=== PATIENT | female | born 1975 | race African-American/Black ===

== ENCOUNTER 2019-01-29 15:07 | Inpatient (IN) | payer MEDICAID ==
[~2019-01-29] VITALS: Ht 160 cm; Wt 118.8 kg
[2019-01-29] MEDS ORDERED: SODIUM CHLORIDE 0.9% 1,000 ML IV ONE ×2 (15:30→18:30)
[2019-01-29] MEDS ORDERED: FENTANYL CITRATE/PF 50MCG/ML 2ML VIAL IV ONE (16:00)
[2019-01-29] MEDS ORDERED: ONDANSETRON HCL 4MG/2ML INJ IV ONE (16:00)
[2019-01-29 16:30] LABS: CHLORIDE 105 mEq/L (98-107)
[2019-01-29 16:31] LABS: BASOPHILS % 0.6 % (0.0-2.0); EOSINOPHILS % 1.2 % (0.0-5.0); HEMATOCRIT. 42.6 % (36.0-48.0); HEMOGLOBIN. 14.4 g/dL (12.0-16.0); LYMPHOCYTES % 26.6 % (20.0-50.0); MEAN CORPUSCULAR HEMOGLOBIN 30.9 pg (28.0-32.0); MEAN CORPUSCULAR VOLUME 91.5 fL (81.0-99.0); MEAN PLATELET VOLUME 11.3 fl (7.4-10.4); MONOCYTES % 11.7 % (2.0-8.0); NEUTROPHILS % 59.9 % (40.0-76.0); PLATELET 189 x1000/uL (130-400); RED BLOOD CELL COUNT 4.65 mill/uL (4.2-5.4); RED CELL DISTRIBUTION WIDTH 14.3 % (11.6-14.6)
[2019-01-29] MEDS ORDERED: KETOROLAC 30MG/ML VIAL IV ONE (17:30)
[2019-01-29 17:56] LABS: CREATINE KINASE 48380 IU/L (26-192)
[2019-01-29] MEDS ORDERED: MORPHINE SULFATE 4 MG/ML CPJ (NOT FOR IM USE) IV ONE (18:30)
[2019-01-29] MEDS ORDERED: CLONIDINE 0.2MG TABLET PO ONE (19:15)
[2019-01-29] MEDS ORDERED: MORPHINE SULFATE 2 MG/ML CPJ (NOT FOR IM USE) IV PRN (19:30)
[2019-01-29] MEDS ORDERED: ONDANSETRON HCL 4MG/2ML INJ IV PRN (19:30)
[2019-01-29] MEDS ORDERED: CLONIDINE 0.1MG TABLET PO PRN (19:30)
[2019-01-29] MEDS ORDERED: HYDRALAZINE 20MG/ML VIAL IV PRN (19:45)
[2019-01-29] MEDS: SODIUM CHLORIDE 0.9% 1,000 ML IV SCH (20:23)
[2019-01-29 21:18] LABS: CLARITY URINE TURBID (CLEAR); COLOR URINE DARK YELLOW (YELLOW); KETONES URINE 1+ (NEGATIVE); LEUKOCYTE ESTERASE URINE 1+ (NEGATIVE); NITRITE URINE NEGATIVE (NEGATIVE); OCCULT BLOOD URINE 3+ (NEGATIVE); PROTEIN URINE 2+ (NEGATIVE); SPECIFIC GRAVITY URINE 1.034 (1.005-1.030)
[2019-01-29 21:29] LABS: *AMPHETAMINES SCREEN URINE NEGATIVE (NEGATIVE); *BARBITURATES SCREEN URINE NEGATIVE (NEGATIVE); *BENZODIAZEPINES SCREEN URINE NEGATIVE (NEGATIVE); METHADONE URINE SCREEN NEGATIVE (NEGATIVE); PHENCYCLIDINE URINE SCREEN NEGATIVE (NEGATIVE)
[2019-01-29 21:30] LABS: *COCAINE SCREEN URINE NEGATIVE (NEGATIVE)
[2019-01-29 21:31] LABS: CANNABINOID URINE SCREEN PRESUMTIVE POSITIVE (NEGATIVE); OPIATES URINE SCREEN PRESUMTIVE POSITIVE (NEGATIVE)
[2019-01-29] MEDS ORDERED: HYDRALAZINE 10 MG in SODIUM CHLORIDE 0.9% 49.5 ML IV PRN (23:00)
[2019-01-30] VITALS (7 sets, daily range): BP systolic 113–153; BP diastolic 73–96
[2019-01-30] MEDS: HYDROCODONE/ACETAMINOPHEN 5/325MG TABLET PO PRN ×2 (01:09→06:40)
[2019-01-30] MEDS: METOPROLOL TARTRATE 50MG TABLET PO SCH ×3 (01:09→20:37)
[2019-01-30] MEDS: AMLODIPINE 5MG TABLET PO SCH ×3 (01:11→20:38)
[2019-01-30 01:20] LABS: CHLORIDE 109 mEq/L (98-107)
[2019-01-30] MEDS ORDERED: LOSA1TAB34 PO (01:36)
[2019-01-30] MEDS ORDERED: HYDR25TA PO (01:36)
[2019-01-30] MEDS: SODIUM CHLORIDE 0.9% 1,000 ML IV SCH ×7 (02:56→20:39)
[2019-01-30 07:19] LABS: BASOPHILS % 0.5 % (0.0-2.0); CHLORIDE 111 mEq/L (98-107); HEMATOCRIT. 38.3 % (36.0-48.0); LYMPHOCYTES % 44.6 % (20.0-50.0); MEAN CORPUSCULAR HEMOGLOBIN 31.1 pg (28.0-32.0); MEAN PLATELET VOLUME 10.4 fl (7.4-10.4); MONOCYTES % 9.5 % (2.0-8.0); NEUTROPHILS % 42.4 % (40.0-76.0); PLATELET 149 x1000/uL (130-400); RED BLOOD CELL COUNT 4.16 mill/uL (4.2-5.4); RED CELL DISTRIBUTION WIDTH 14.2 % (11.6-14.6)
[2019-01-30 08:40] LABS: CREATINE KINASE 44895 IU/L (26-192)
[2019-01-30] MEDS: HYDROCODONE/APAP 7.5/325MG 1 TAB TABLET PO PRN ×2 (10:31→16:07)
[2019-01-30] MEDS ORDERED: CEFTRIAXONE 1 G PREMIX 50 ML IV SCH (12:00)
[2019-01-30] MEDS: ENOXAPARIN 40MG/0.4ML SYR SUBCUT SCH (20:38)
[2019-01-31] VITALS (8 sets, daily range): BP systolic 89–206; BP diastolic 71–108
[2019-01-31] MEDS: HYDROCODONE/APAP 7.5/325MG 1 TAB TABLET PO PRN ×5 (00:20→20:02)
[2019-01-31] MEDS: SODIUM CHLORIDE 0.9% 1,000 ML IV SCH ×5 (01:59→20:00)
[2019-01-31 05:37] LABS: BASOPHILS % 0.8 % (0.0-2.0); EOSINOPHILS % 3.8 % (0.0-5.0); HEMATOCRIT. 37.8 % (36.0-48.0); HEMOGLOBIN. 12.7 g/dL (12.0-16.0); LYMPHOCYTES % 46.7 % (20.0-50.0); MEAN CORPUSCULAR HEMOGLOBIN 31.2 pg (28.0-32.0); MEAN CORPUSCULAR VOLUME 92.7 fL (81.0-99.0); MEAN PLATELET VOLUME 11.5 fl (7.4-10.4); NEUTROPHILS % 39.7 % (40.0-76.0); PLATELET 159 x1000/uL (130-400); RED BLOOD CELL COUNT 4.08 mill/uL (4.2-5.4); RED CELL DISTRIBUTION WIDTH 14.1 % (11.6-14.6)
[2019-01-31 05:56] LABS: CHLORIDE 112 mEq/L (98-107)
[2019-01-31 07:54] LABS: CREATINE KINASE 40366 IU/L (26-192)
[2019-01-31] MEDS: AMLODIPINE 5MG TABLET PO SCH (09:13)
[2019-01-31] MEDS: METOPROLOL TARTRATE 50MG TABLET PO SCH (09:14)
[2019-01-31] MEDS: ENOXAPARIN 40MG/0.4ML SYR SUBCUT SCH (09:14)
[2019-01-31 13:33] LABS: HEPATITIS B SURFACE ANTIGEN NEGATIVE
[2019-01-31 14:03] LABS: HEPATITIS A AB IGM NEGATIVE (NEGATIVE)
[2019-01-31] MEDS: ENOXAPARIN 30MG/0.3ML SYR SUBCUT SCH (20:00)
[2019-01-31] MEDS: METOPROLOL TARTRATE 25MG TABLET PO SCH (20:01)
[2019-01-31] MEDS ORDERED: METOPROLOL TARTRATE 25MG TABLET PO SCH (21:00)
[2019-01-31] MEDS ORDERED: AMLODIPINE 5MG TABLET PO SCH (21:00)
[2019-01-31] MEDS ORDERED: ACETAMINOPHEN 325MG TABLET PO PRN (22:07)
[2019-02-01] VITALS (7 sets, daily range): BP systolic 121–157; BP diastolic 66–97
[2019-02-01] MEDS: SODIUM CHLORIDE 0.9% 1,000 ML IV SCH (03:24)
[2019-02-01 06:56] LABS: BASOPHILS % 0.7 % (0.0-2.0); EOSINOPHILS % 4.8 % (0.0-5.0); HEMATOCRIT. 38.3 % (36.0-48.0); HEMOGLOBIN. 12.8 g/dL (12.0-16.0); LYMPHOCYTES % 39.2 % (20.0-50.0); MEAN CORPUSCULAR HEMOGLOBIN 30.8 pg (28.0-32.0); MEAN CORPUSCULAR VOLUME 92.4 fL (81.0-99.0); MEAN PLATELET VOLUME 11.1 fl (7.4-10.4); MONOCYTES % 12.9 % (2.0-8.0); NEUTROPHILS % 42.4 % (40.0-76.0); PLATELET 154 x1000/uL (130-400); RED BLOOD CELL COUNT 4.14 mill/uL (4.2-5.4); RED CELL DISTRIBUTION WIDTH 13.7 % (11.6-14.6)
[2019-02-01 07:23] LABS: CHLORIDE 109 mEq/L (98-107)
[2019-02-01] MEDS ORDERED: AMLODIPINE 2.5MG TABLET PO SCH (09:00)
[2019-02-01] MEDS: AMLODIPINE 5MG TABLET PO SCH (09:23)
[2019-02-01] MEDS: ENOXAPARIN 30MG/0.3ML SYR SUBCUT SCH ×2 (09:24→21:48)
[2019-02-01] MEDS: METOPROLOL TARTRATE 25MG TABLET PO SCH ×2 (09:24→21:47)
[2019-02-01] MEDS ORDERED: SODIUM BICARBONATE 50 MEQ in SODIUM CHLORIDE 0.45% 950 ML IV SCH (12:00)
[2019-02-01 12:59] LABS: CREATINE KINASE 15456 IU/L (26-192)
[2019-02-01] MEDS: HYDROCODONE/APAP 7.5/325MG 1 TAB TABLET PO PRN ×2 (14:12→21:48)
[2019-02-01 14:59] LABS: CREATINE KINASE 20978 IU/L (26-192)
[2019-02-01] MEDS ORDERED: METO25TA6 PO (16:39)
[2019-02-01] MEDS ORDERED: AMLO5TAB88 PO (16:39)
[2019-02-02] VITALS: BP 139/83
[2019-02-02 04:00] VITALS: BP 122/78
[2019-02-02 04:15] LABS: HIV SCREEN 4G Non Reactive (Non Reactive)
[2019-02-02 07:12] VITALS: BP 122/78
[2019-02-02] MEDS: AMLODIPINE 5MG TABLET PO SCH (07:48)
[2019-02-02] MEDS: METOPROLOL TARTRATE 25MG TABLET PO SCH (07:49)
[2019-02-02] MEDS: HYDROCODONE/APAP 7.5/325MG 1 TAB TABLET PO PRN (07:53)
[2019-02-02] MEDS: ENOXAPARIN 30MG/0.3ML SYR SUBCUT SCH (07:54)
[2019-02-02 08:05] VITALS: BP 166/106
== END 2019-02-02 11:47 | disposition home or self-care (01) | DRG 351 ==
LOC: ER 15:07 → 6EST 18:43 → EDBEDREQTM 19:05 → EDBEDREQSVC 19:05 → ENRESERV 21:48 → 6WST 01-30 00:50
PROVIDERS: ADMIT Internal Medicine; ATTEND Internal Medicine
DX: M62.82 Rhabdomyolysis (principal); I95.9 Hypotension, unspecified; E44.0 Moderate protein-calorie malnutrition; Z68.42 Body mass index [BMI] 45.0-49.9, adult; I16.0 Hypertensive urgency; E66.9 Obesity, unspecified; F12.90 Cannabis use, unspecified, uncomplicated; I10 Essential (primary) hypertension; N39.0 Urinary tract infection, site not specified; R74.0 Nonspecific elevation of levels of transaminase and lactic acid dehydrogenase [LDH]; Z71.3 Dietary counseling and surveillance
CPT/HCPCS: 36415; 71045; 76705; 80048; 80061; 80076; 80305; 81003; 82248; 82550; 84443; 84484; 86705; 86709; 86803; 87340; 87389; 93005; 93970; 96374; 99285; J0696; J1650; J1885; J2270; J2405; J3010; J3490; J7030